=== PATIENT | female | born 1970 | race Caucasian/White ===

== ENCOUNTER → 2016-12-03 | Outpatient (CLI) | payer OTHER | LOC: FIMAGING 15:50 | PROVIDERS: ATTEND Nurse Practitioner Women's Health | DX: Z12.31 Encounter for screening mammogram for malignant neoplasm of breast (principal) | CPT/HCPCS: G0202 ==

== ENCOUNTER → 2018-02-17 | Outpatient (CLI) | payer BC | END | disposition home or self-care (01) | LOC: FIMAGING 08:10 | PROVIDERS: ATTEND Family Medicine | DX: Z12.31 Encounter for screening mammogram for malignant neoplasm of breast (principal); R92.0 Mammographic microcalcification found on diagnostic imaging of breast ==

== ENCOUNTER → 2018-03-03 | Outpatient (CLI) | payer BC | LOC: FIMAGING 14:44 | PROVIDERS: ATTEND Family Medicine | DX: R92.0 Mammographic microcalcification found on diagnostic imaging of breast (principal) ==

== ENCOUNTER → 2018-04-08 | Outpatient (CLI) | payer BC ==
[~2018-04-08] MED LIST: GADOBUTROL 10 ML VIAL IVP ONE
== END ==
LOC: FIMAGING 09:00
PROVIDERS: ATTEND Surgery
DX: D05.11 Intraductal carcinoma in situ of right breast (principal); R92.8 Other abnormal and inconclusive findings on diagnostic imaging of breast; Z98.890 Other specified postprocedural states
CPT/HCPCS: A9585; C8908

== ENCOUNTER → 2018-04-11 | Outpatient (CLI) | payer BC | LOC: FIMAGING 09:26 | PROVIDERS: ATTEND Surgery | DX: R92.0 Mammographic microcalcification found on diagnostic imaging of breast (principal); Z85.3 Personal history of malignant neoplasm of breast ==

== ENCOUNTER 2018-05-12 07:18 | Day surgery (SDC) | payer BC ==
[2018-05-12] MEDS ORDERED: BUPIVACAINE 0.5% 30 ML SDV ONE ×2 (07:28→08:05)
[2018-05-12] MEDS ORDERED: LIDOCAINE 1% 300 MG/30 ML SDV ONE (07:28)
[2018-05-12] MEDS ORDERED: GADOBUTROL 10 ML VIAL IVP ONE (08:05)
[2018-05-12] MEDS ORDERED: NA BICARBONATE 50 MEQ/50 ML VIAL ONE (08:05)
[2018-05-12] MEDS ORDERED: LIDOCAINE 1% 5 ML SDV ONE (08:06)
[2018-05-12] MEDS ORDERED: FLUMAZENIL 0.5 MG/5 ML MDV IVP ONE (09:14)
[2018-05-12] MEDS ORDERED: fentaNYL 100 MCG/2 ML INJ ONE (09:14)
[2018-05-12] MEDS ORDERED: MIDAZOLAM 2 MG/2 ML VIAL ONE (09:14)
[2018-05-12] MEDS ORDERED: NALOXONE HCL 0.4 MG/ML INJ ONE (09:14)
[2018-05-12] MEDS ORDERED: fentaNYL 100 MCG/2 ML INJ IVP PRN (09:32)
[2018-05-12] MEDS ORDERED: NALOXONE HCL 0.4 MG/ML INJ IVP PRN (09:32)
[2018-05-12] MEDS ORDERED: MIDAZOLAM 2 MG/2 ML VIAL IVP PRN (09:32)
[2018-05-12] MEDS ORDERED: FLUMAZENIL 0.5 MG/5 ML MDV IVP PRN (09:32)
[2018-05-12] MEDS ORDERED: MEPERIDINE 25 MG/ML SYR IVP PRN (09:32)
[2018-05-12] MEDS ORDERED: NS 1,000 ML IV SCH (09:45)
[2018-05-12] MEDS ORDERED: THROMBIN (BOVINE) 5,000 UNIT VIAL TP ONE (09:58)
--- NOTE | 2018-05-12 10:20 | PDPROPOC ---
Sedation Plan of Care Sedation Plan of Care: vital signs stable, mental status noted, patient educated of risks, benefits, alternatives, patient can tolerate sedation ASA Classification: ASA 1 Planned drugs: fentanyl, midazolam Mallampati Score: Class 1 Mallampati Reference Image: Patient passed 3-3-2 rule?: Yes
--- NOTE | 2018-05-12 10:21 | PDGENHP ---
History & Physical Chief Complaint: abnl breast MRI Cardiorespiratory Assessment: rrr, clear
[2018-05-12 11:46] VITALS: BP 138/96
[2018-05-12] MEDS ORDERED: ACETAMINOPHEN 325 MG TAB PO PRN (13:24)
[2018-05-12] MEDS ORDERED: ONDANSETRON 4 MG/2 ML VIAL IVP PRN (13:24)
== END 2018-05-12 11:51 | disposition home or self-care, planned readmission (81) ==
LOC: FIMAGING 07:18
PROVIDERS: ATTEND Surgery
PROC: 0HBT3ZX Excision of Right Breast, Percutaneous Approach, Diagnostic (ICD-10-PCS; principal; 2018-05-12)
PROC: 0HBU3ZX Excision of Left Breast, Percutaneous Approach, Diagnostic (ICD-10-PCS; 2018-05-12)
DX: D05.11 Intraductal carcinoma in situ of right breast (principal); N60.12 Diffuse cystic mastopathy of left breast
CPT/HCPCS: A9585; J2250; J2310; J3010

== ENCOUNTER 2018-06-16 06:35 | Day surgery (SDC) | payer BC ==
--- NOTE | 2018-06-14 14:42 | GHP ---
[f rep st] PREOP HISTORY AND PHYSICAL DATE OF ADMISSION: 06/16/2018 DATE OF SURGERY: 06/16/2018. PREPROCEDURE DIAGNOSIS: Right breast ductal carcinoma in situ. HISTORY OF PRESENT ILLNESS: A 48-year-old woman who underwent large excisional breast biopsy of the right side following a diagnostic mammogram revealing retroareolar pleomorphic microcalcifications. Final pathology showed high- grade ductal carcinoma in situ, ER positive, MA positive. The margins less than 1 mm from the superior margin, 2 mm from the posterior margin and greater than 5 cm from all other margins. Her genetic testing was negative. She did get a breast MRI on 04/08/2018, which showed a small amount of peripheral enhancement around the right upper outer breast operative bed, which could be veterans employment representative of residual disease. On the left breast, there was an 8 mm asymmetric focus and recommended further workup. She had a diagnostic mammogram on 04/11/2018, of the right breast, which did show residual indeterminate mildly suspicious microcalcifications. She had a stereotactic breast biopsy on 05/02/2018, of the right breast, as well as an MRI-guided breast biopsy of the left breast. The left breast pathology was negative. Right breast showed residual DCIS. She now presents for mammogram needle- localized right breast lumpectomy for residual DCIS. PAST MEDICAL HISTORY: None. PAST SURGICAL HISTORY: Right breast excisional biopsies before. Tonsillectomy. MEDICATIONS: None. ALLERGIES: No known drug allergies. FAMILY HISTORY: Significant for breast cancer in paternal grandmother at age 65 , type 2 diabetes, congestive heart failure, alcoholism, [place]. SOCIAL HISTORY: She reports alcohol use. No tobacco or recreational drug use. She has a child. She has a daughter. She works as an environmental engineering manager. REVIEW OF SYSTEMS: No fevers or chills. PHYSICAL EXAM: GENERAL: A well-developed, well-nourished woman in no acute distress. HEENT: Normocephalic, atraumatic. No hearing deficits. Pupils are equal and round. No scleral icterus. Mucous membranes are moist. NECK: Trachea midline. RESPIRATORY: No increased work of breathing. Clear to auscultation bilaterally. CARDIOVASCULAR: Regular rate and rhythm. No peripheral edema. BREASTS: Exam performed in upright and supine position. Right breast surgical incision is well healed. No palpable masses or other abnormal breast findings. SKIN: Warm and dry. PSYCH: Mood and affect normal. NEURO: Grossly intact. IMPRESSION AND PLAN: A 48-year-old woman with right breast ductal carcinoma in situ, estrogen receptor positive, progesterone receptor positive, who will undergo right breast needle-localized lumpectomy with margins. We discussed risks of surgery, including infection, bleeding, damage to surrounding structures, or need for additional procedures. She understands the risks and would like to proceed. This will be an outpatient procedure. She will receive antibiotics economics faculty member to the operating room. The patient was additionally seen by Dr. Tamez. /[id number]/MODL MTDD
[2018-06-16] MEDS ORDERED: ceFAZolin 2 GM/DEXTROSE 100 ML IV ONE (06:49)
[2018-06-16] MEDS ORDERED: LR 1,000 ML IV ONE (06:50)
[2018-06-16] MEDS ORDERED: LIDOCAINE 1% 300 MG/30 ML SDV ONE ×2 (07:29→09:30)
--- NOTE | 2018-06-16 08:04 | PDHPUP ---
History & Physical Update H&P update statement: This history and physical update is based on an assessment of the patient which was completed after admission or registration (within 24 hours), but prior to the surgery/procedure. H&P update: H&P reviewed & patient examined, no change in patient's condition since H&P completed
[2018-06-16] MEDS ORDERED: BUPIVACAINE 0.5% 30 ML SDV ONE (09:06)
[2018-06-16] MEDS ORDERED: MIDAZOLAM 2 MG/2 ML VIAL IVP ONE (09:13)
[2018-06-16] MEDS ORDERED: MIDAZOLAM 2 MG/2 ML VIAL ONE (09:13)
[2018-06-16] MEDS ORDERED: NALOXONE HCL 0.4 MG/ML INJ IVP PRN (09:15)
[2018-06-16] MEDS ORDERED: ACETAMINOPHEN 500 MG TAB PO PRN (09:15)
[2018-06-16] MEDS ORDERED: HYDROCODONE/APAP 5/325 TAB PO PRN (09:15)
[2018-06-16] MEDS ORDERED: ONDANSETRON 4 MG/2 ML VIAL IVP PRN (09:15)
[2018-06-16] MEDS ORDERED: LR 500 ML IV PRN (09:15)
[2018-06-16] MEDS ORDERED: PROMETHAZINE HCL 25 MG/ML INJ IVP PRN (09:15)
--- NOTE | 2018-06-16 09:15 | PDANEPAE ---
ANE Past Medical History - Cardiovascular History Hx Hypertension: No Hx Arrhythmias: No Hx Chest Pain: No Hx Coronary Artery / Peripheral Vascular Disease: No Hx CHF / Valvular Disease: No Hx Palpitations: No - Pulmonary History Hx COPD: No Hx Asthma/Reactive Airway Disease: No Hx Recent Upper Respiratory Infection: No Hx Oxygen in Use at Home: No Hx Sleep Apnea: No Sleep Apnea Screening Result - Last Documented: Negative - Neurologic History Hx Cerebrovascular Accident: No Hx Seizures: No Hx Dementia: No - Endocrine History Hx Diabetes: No Obesity: mild - Renal History Hx Renal Disorders: No - Liver History Hx Hepatic Disorders: No - Neurological & Psychiatric Hx Hx Neurological and Psychiatric Disorders: No - Cancer History Hx Cancer: Yes Cancer History Comment: DCIS stage 0 - Congenital Disorder History Hx Congenital Disorders: No - GI History GERD: no Hx Gastrointestinal Disorders: No - Other Health History Other Health History: BORDERLINE ANEMIC NORMALLY - Chronic Pain History Chronic Pain: No - Surgical History Prior Surgeries: R breast biopsy surgical excision. tonsillectomy. MRI BX L BREAST ANE Review of Systems Review of Systems: - Exercise capacity METS (RN): 5 METS ANE Patient History - Allergies Allergies/Adverse Reactions: No Allergies [NKDA] Allergy (Verified 05/12/18 09:42) - Home Medications Home medications: home medication list seen and reviewed Home Medications: Advil 06/09/18 [Last Taken 1 Week Ago ~06/09/18] Herbals/Supplements -Info Only 06/09/18 [Last Taken 1 Week Ago ~06/09/18] - NPO status NPO Status: no food or drink >8 hours NPO Since - Liquids (Date): 06/16/18 NPO Since - Liquids (Time): 05:30 NPO Since - Solids (Date): 06/15/18 NPO Since - Solids (Time): 19:00 - Anes Hx Anes Hx: no prior problems - Smoking Hx Smoking Status: Never smoked - Family Anes Hx Family Hx Anesthesia Complications: none ANE Labs/Vital Signs - Vital Signs Blood Pressure: 143/87 Heart Rate: 52 Respiratory Rate: 16 O2 Sat (%): 97 Height: 170.18 cm Weight: 90.718 kg ANE Physical Exam - Airway Neck exam: FROM Mallampati Score: Class 1 Mouth exam: normal dental/mouth exam - Pulmonary Pulmonary: no respiratory distress, no rales or rhonchi, clear to auscultation - Cardiovascular Cardiovascular: regular rate and rhythym, no murmur, rub, or gallop - ASA Status ASA Status: I ANE Anesthesia Plan Anesthesia Plan: MAC
[2018-06-16] MEDS ORDERED: DEXAMETHASONE 4 MG/ML VIAL ONE ×2 (09:18)
[2018-06-16] MEDS ORDERED: PROPOFOL 200 MG/20 ML VIAL ONE ×2 (09:18→09:40)
[2018-06-16] MEDS ORDERED: fentaNYL 100 MCG/2 ML INJ ONE (09:18)
--- NOTE | 2018-06-16 10:24 | POSTOPPROG ---
Post Op Note Date of Operation: 06/16/18 Surgeon: Kavita Tamez Anesthesiologist: janusz Anesthesia: IV Sedation Pre-op Diagnosis: R breast DCIS Post-op Diagnosis: Same Indication: 48 yo with DCIS Procedure: R needle loc lumpectomy Findings: calcs in specimen Inf/Abcess present in the surg proc area at time of surgery?: No Specimen(s): R lumpectomy and margins
--- NOTE | 2018-06-16 10:28 | POSTANESTH ---
Post Anesthetic Evaluation Cardiovascular Status: Normal, Stable, Similar to Pre-Op Cond Respiratory Status: Normal, Stable, Similar to Pre-op Cond. Level of Consciousness/Mental Status: Can Participate in Eval, Alert and Oriented Pain Control: Adequate, Prn Tx Ordered Nausea/Vomiting Control: Adequate, Prn Tx Ordered Complications Possibly Related to Anesthesia: None Noted
[2018-06-16] MEDS: fentaNYL 100 MCG/2 ML INJ IVP PRN ×2 (10:32→10:45)
--- NOTE | 2018-06-16 11:28 | GOP ---
[f rep st] OPERATIVE REPORT DATE OF OPERATION: 06/16/2018 SURGEON: Kavita Tamez MD ANESTHESIA: Monitored anesthesia care with IV sedation. ANESTHESIOLOGIST: Dariusz Castano MD PREOPERATIVE DIAGNOSIS: Right breast ductal carcinoma in situ. POSTOPERATIVE DIAGNOSIS: Right breast ductal carcinoma in situ. PROCEDURE PERFORMED: Right needle-localized lumpectomy. FINDINGS: SPECIMENS: Right breast tissue and additional margins. ESTIMATED BLOOD LOSS: 20 cc. INDICATIONS: The patient is a 48-year-old woman who I took to the operating room for excisional biop sy which showed ductal carcinoma in situ. She presents for formal lumpectomy. DESCRIPTION OF PROCEDURE: Patient was brought into the operating room, placed supine on the table, a nd monitored anesthesia care with IV sedation was performed. Her right breast was prepped and draped in the usual sterile fashion. I infiltrated the area with 20 cc of 0.5% Marcaine mixed with 1% lido althea. I made an incision over the superior aspect of her areola and I created superior and inferior skin flaps. I brought the wire down into the field. I dissected down around the wire. I marked th is green anterior, red superior, yellow medial, blue inferior, orange lateral, black posterior and pradhan bmitted this to Radiology. Calcifications and needle were in appropriate position. A second additio nal superior margin inked red, medial margin inked yellow, inferior margin inked blue, lateral margin inked orange, posterior margin inked black. Hemostasis was achieved. I placed Ghulam 1 g in the wo und. I placed a clip service aide to nikole the lumpectomy cavity. I closed the deep layers with 3-0 Vicry l and I closed the skin with 3-0 Vicryl, followed by 4-0 Monocryl. Mastisol, Steri-Strips, sterile d ressing applied. She was awakened in the operating room, transferred to PACU in stable condition. /[id number]/MODL
[2018-06-16 12:02] VITALS: BP 119/83
== END 2018-06-16 11:55 | disposition home or self-care (01) ==
LOC: FSGY 06:35
PROVIDERS: ATTEND Surgery
PROC: 0HBT0ZZ Excision of Right Breast, Open Approach (ICD-10-PCS; principal; 2018-06-16 09:30)
DX: D05.11 Intraductal carcinoma in situ of right breast (principal)
CPT/HCPCS: J0690; J1100; J2250; J2704; J3010

== ENCOUNTER → 2018-07-14 | Outpatient (CLI) | payer BC | LOC: FIMAGING 10:11 ==